=== PATIENT | male | born 1970 | race Caucasian/White ===

== ENCOUNTER → 2023-10-29 12:00 | Outpatient (REF) | payer BC, SELFPAY | LOC: DHSLP 12:00 | PROVIDERS: ATTENDING PHYSICIAN Internal Medicine; FAMILY PHYSICIAN Family Medicine | DX: G47.33 Obstructive sleep apnea (adult) (pediatric) (principal) | CPT/HCPCS: 95800 ==

== ENCOUNTER → 2024-03-25 08:14 | Outpatient (REF) | payer BC, SELFPAY | LOC: RAD 08:14 | PROVIDERS: ATTENDING PHYSICIAN Family Medicine | DX: M54.2 Cervicalgia (principal) | CPT/HCPCS: 72040 ==

== ENCOUNTER → 2024-07-21 06:48 | Outpatient (REF) | payer BC, SELFPAY | LOC: RAD 06:48 | PROVIDERS: ATTENDING PHYSICIAN Podiatrist Foot & Ankle Surgery; FAMILY PHYSICIAN Family Medicine | DX: I73.89 Other specified peripheral vascular diseases (principal); I73.1 Thromboangiitis obliterans [Buerger's disease] | CPT/HCPCS: 93922; 93925 ==